=== PATIENT | male | born 1950 | race Caucasian/White ===

== ENCOUNTER → 2020-01-05 | Outpatient (CLI) | payer MEDICARE, BC ==
[~2020-01-05] MED LIST: ADVIL100 MG; CYAN500; FLONASE ALLERG9.9 ML; LORA1SY; MELA3; TAMS.4ER
== END | disposition home or self-care (01) ==
LOC: PLD 08:11 → LAB SHORT 08:11
DX: D22.5 Melanocytic nevi of trunk (principal)
CPT/HCPCS: 88305

== ENCOUNTER 2021-05-04 13:16 | Day surgery (SDC) | payer MEDICARE, BC ==
[~2021-05-04] VITALS: Ht 190.5 cm; Wt 96.2 kg
[~2021-05-04 13:16] MED LIST changes: +C COMPLEX1000 M1 PO; +FISH OIL 1,2001 EAC1 PO; -MELA3; +MELA3 PO; -TAMS.4ER; +TAMS.4ER PO; +VIT1CAPS12 PO; +VITAMIN D310 MC4 PO; +VITAMIN E180 MG PO
--- NOTE | 2021-05-04 14:33 | NUR ---
05/04/21 1433 Isidro Almanzar History, Chart, Medications and Allergies reviewed before start of procedure. Patient confirms NPO status and agrees with scheduled surgery. 3-LEAD EKG REVIEWED WITH PHYSICIAN PRIOR TO START OF PROCEDURE. MONITOR INTACT WITH CONTINUOUS PULSE OXIMETRY AND INTERMITTENT BP. PATIENT DETERMINED TO BE ASA APPROPRIATE FOR PROPOFOL SEDATION PRIOR TO START OF PROCEDURE BY DR. SAMS.
--- NOTE | 2021-05-04 15:46 | NUR ---
Discharge instructions reviewed with patient. Patient verbalizes understanding. Copy given to patient to take home.
--- NOTE | 2021-05-04 16:12 | NUR ---
Discharged via wheelchair to private car for ride home.
== END 2021-05-04 16:00 | disposition home or self-care (01) ==
LOC: ORSCMMR 13:16 → ORD 14:30 → ORSCMMR 14:30
PROVIDERS: Surgery
PROC: 0DBP8ZX Excision of Rectum, Via Natural or Artificial Opening Endoscopic, Diagnostic (ICD-10-PCS; principal; 2021-05-04 14:30)
DX: Z12.11 Encounter for screening for malignant neoplasm of colon (principal); Z86.010 Personal history of colon polyps; D12.8 Benign neoplasm of rectum; K57.30 Diverticulosis of large intestine without perforation or abscess without bleeding; Z79.899 Other long term (current) drug therapy
CPT/HCPCS: 88305; J2704; J7120

== ENCOUNTER 2024-01-13 22:52 | Observation (INO) | payer MEDICARE, BC ==
[~2024-01-13] VITALS: Ht 188 cm; Wt 89.8 kg
[2024-01-13] MEDS ORDERED: NS 1,000 ML IV SCH (23:10)
[2024-01-13 23:28] LABS: BASOPHILS ABSOLUTE AUTO 0.04 K/mm3 (0.00-0.23); BASOPHILS PERCENT AUTO 1 % (0-2); EOSINOPHILS ABSOLUTE AUTO 0.09 K/mm3 (0.00-0.68); EOSINOPHILS PERCENT AUTO 2 % (0-6); Hematocrit 31.9 % (37.0-53.0); Hemoglobin 10.7 g/dL (13.5-17.5); IMMATURE GRAN ABSOLUTE AUTO 0.01 K/mm3 (0.00-0.10); IMMATURE GRAN PERCENT AUTO 0 % (0-1); LYMPHOCYTES ABSOLUTE AUTO 1.42 K/mm3 (0.84-5.20); LYMPHOCYTES PERCENT AUTO 32 % (21-46); MONOCYTES ABSOLUTE AUTO 0.37 K/mm3 (0.16-1.47); MONOCYTES PERCENT AUTO 8 % (4-13); Mean Corpuscular HGB 31.7 pg (26.0-34.0); Mean Corpuscular HGB Conc 33.5 g/dL (31.5-36.5); Mean Corpuscular Volume 94 fL (80-100); Mean Platelet Volume 10.1 fL (9.1-12.4); NEUTROPHILS ABSOLUTE AUTO 2.46 K/mm3 (1.96-9.15); NEUTROPHILS PERCENT AUTO 56 % (41-73); Platelet Count 177 K/mm3 (150-400); RDW Coefficient Variation 12.5 % (11.7-14.2); RDW Standard Deviation 43.5 fL (35.1-46.3); Red Blood Cell Count 3.38 M/mm3 (4.30-5.90); White Blood Cell Count 4.39 K/mm3 (4.00-11.30)
[2024-01-13 23:46] LABS: Albumin, Blood 3.3 g/dL (3.4-5.0); Albumin/Globulin Ratio 1.3 (0.8-1.8); Bilirubin, Total 0.4 mg/dL (0.1-1.0); Bun/Creatinine Ratio 14.5 (12.0-20.0); Calcium, Blood 8.1 mg/dL (8.5-10.1); Creatinine, Blood 1.24 mg/dL (0.60-1.20); Globulin, Blood 2.5 g/dL (2.2-4.0); Potassium, Blood 3.6 mmol/L (3.5-5.5); Total Protein, Blood 5.8 g/dL (6.4-8.2)
[2024-01-14] MEDS ORDERED: Ondansetron HCl 2 MG / ML 2ML Vial IV PRN (00:15)
[2024-01-14] MEDS ORDERED: NS 1,000 ML IV ONE (00:15)
[2024-01-14] MEDS ORDERED: Acetaminophen 325 MG TABLET PO PRN (00:15)
[2024-01-14 00:31] LABS: International Normalized Ratio 1.07; Prothrombin Time Results 11.4 Sec (9.7-11.5)
[2024-01-14 01:46] VITALS: BP 100/57
[2024-01-14 05:03] LABS: BASOPHILS ABSOLUTE AUTO 0.03 K/mm3 (0.00-0.23); BASOPHILS PERCENT AUTO 1 % (0-2); EOSINOPHILS ABSOLUTE AUTO 0.02 K/mm3 (0.00-0.68); EOSINOPHILS PERCENT AUTO 0 % (0-6); Hemoglobin 9.3 g/dL (13.5-17.5); IMMATURE GRAN ABSOLUTE AUTO 0.01 K/mm3 (0.00-0.10); IMMATURE GRAN PERCENT AUTO 0 % (0-1); LYMPHOCYTES ABSOLUTE AUTO 0.76 K/mm3 (0.84-5.20); LYMPHOCYTES PERCENT AUTO 13 % (21-46); MONOCYTES ABSOLUTE AUTO 0.37 K/mm3 (0.16-1.47); MONOCYTES PERCENT AUTO 6 % (4-13); Mean Corpuscular HGB 31.7 pg (26.0-34.0); Mean Corpuscular HGB Conc 33.2 g/dL (31.5-36.5); Mean Corpuscular Volume 96 fL (80-100); Mean Platelet Volume 9.9 fL (9.1-12.4); NEUTROPHILS ABSOLUTE AUTO 4.56 K/mm3 (1.96-9.15); NEUTROPHILS PERCENT AUTO 79 % (41-73); Platelet Count 138 K/mm3 (150-400); RDW Coefficient Variation 12.5 % (11.7-14.2); RDW Standard Deviation 43.8 fL (35.1-46.3); Red Blood Cell Count 2.93 M/mm3 (4.30-5.90); White Blood Cell Count 5.75 K/mm3 (4.00-11.30)
[2024-01-14 06:12] LABS: Albumin, Blood 2.9 g/dL (3.4-5.0); Albumin/Globulin Ratio 1.3 (0.8-1.8); Bilirubin, Total 0.4 mg/dL (0.1-1.0); Creatinine, Blood 1.2 mg/dL (0.60-1.20); Globulin, Blood 2.2 g/dL (2.2-4.0); Potassium, Blood 4.7 mmol/L (3.5-5.5); Total Protein, Blood 5.1 g/dL (6.4-8.2)
[2024-01-14 07:57] VITALS: BP 99/66
--- NOTE | 2024-01-14 08:09 | NUR ---
SHIFT SUMMARY PT ARRIVED TO ROOM 361 FROM ER VIA WHEELCHAIR AROUND 0130. PT TRANSFERED SELF TO HOSPITAL BED. PT HAD BLOOD ON HIS T-SHIFT AND UNDERWEAR. HE WALKED INTO BR AND CLEANED HIMSELF UP AND CHANGED OUT HIS UNDERWEAR. PT IS A&OX4, PLEASANT AND COOPERATIVE. VSS ON RA. DENIES PAIN. PRESSURE DRESSING TO L LOWER ELDER, INTACT. REMAINED NPO FOR POSSIBLE SURGERY TODAY. ORIENTED PT TO ROOM AND CALL LIGHT. BED IN LOWEST POSITION, CALL LIGHT WITHIN REACH.
[2024-01-14 12:13] LABS: Hematocrit 27.4 % (37.0-53.0)
== END 2024-01-14 14:52 | disposition home or self-care (01) ==
LOC: ER 22:52 → MEDS 22:53 → ENPENDDIS 01-14 13:36 → MEDS 01-14 14:52
PROVIDERS: Emergency Medicine; ADMIT Internal Medicine
DX: I83.892 Varicose veins of left lower extremity with other complications (principal); I95.9 Hypotension, unspecified; D64.9 Anemia, unspecified; N40.0 Benign prostatic hyperplasia without lower urinary tract symptoms; E86.0 Dehydration; Z87.891 Personal history of nicotine dependence
CPT/HCPCS: 36415; 80053; 85014; 85018; 85025; 85610; 85730; 86850; 86900; 86901; 93970; 99284; G0378; J7030